=== PATIENT | female | born 1960 | race Caucasian/White ===

== ENCOUNTER 2025-02-01 15:09 | Outpatient (CLI) | payer MEDICARE ==
[~2025-02-01 15:09] MED LIST: ASCO-100 PO; BIOT25008 PO; BUSP15TA8 PO; CALC600T49 PO; CARV25TA2 PO; CHOL10002 PO; CLON-529 PO; CYAN25004 PO; DULO-31 PO; EST1T PO; GABA-1405 PO; LISI1TAB51 PO; OMEG500C PO; OMEP20CA15 PO; SPIR50TA5 PO; VENL-190 PO
--- NOTE | 2025-02-01 18:54 | RADIOLOGY REPORT ---
EXAM: MR MRI LOWER EXTREMITY LEFT INDICATION: PAIN IN LEFT FOOT TECHNIQUE: Multiplanar, multisequence imaging of the left forefoot COMPARISON: None FINDINGS: BONES: No MR evidence of an acute fracture, osseous contusion, or aggressive focal osseous lesion. MUSCLES: Diffuse edematous appearance which may be compatible with subacute on chronic denervation wi th [id number] fatty infiltration of the intrinsic musculature TENDONS: Intact. LIGAMENTS: Lisfranc ligamentous complex is intact JOINT SPACES: No joint effusion. NEUROVASCULAR: Normal. OTHER: Ganglion cyst extruded laterally and dorsally at the level of the midfoot measuring up to 1.6 cm. IMPRESSION: 1. Diffuse edematous appearance which may be compatible with subacute on chronic denervation with mil [id number] fatty infiltration of the intrinsic musculature. 2. Ganglion cyst extruded laterally and dorsally at the level of the midfoot measuring up to 1.6 cm.
--- NOTE | 2025-02-01 19:02 | RADIOLOGY REPORT ---
EXAM: MR MRI LOWER EXTREMITY LEFT INDICATION: PAIN IN LEFT FOOT TECHNIQUE: Multiplanar and multisequence MR imaging of the left ankle was performed in the absence of gadolinium contrast. COMPARISON: None FINDINGS: [MEDIAL ANKLE]: Intact posterior tibialis, flexor hallucis longus, and flexor digitorum tendons.. Int act deltoid ligament. Intact spring ligament complex. [LOW LATERAL ANKLE]: Thickening of the anterior talofibular ligament likely compatible with prior inj ury. Thickening of the calcaneofibular ligament compatible with prior injury. Thickening and irregula rity with susceptibility artifact which may be compatible with postoperative change of the peroneal b estrella tendon insertion at lateral cord of the plantar fascia. No loss of tightness to suggest high-g rade tear. Correlate for underlying fibrosis/scarring. [HIGH LATERAL ANKLE]: Intact anterior and posterior inferior tibiofibular ligaments. [ANTERIOR ANKLE]: Intact anterior tibialis, extensor digitorum longus, and extensor hallucis longus t endons. [POSTERIOR ANKLE]: No tibiotalar or subtalar joint effusion. Normal sinus Tarsi. Normal plantar fasci a. Achilles tendinosis with the loss of normal distal concavity. No retrocalcaneal bursitis. [MIDFOOT]: Ganglion cyst of the dorsal lateral aspect of the midfoot overlying the area of postoperat patt change of the 5th metatarsal measuring up to 1.6 cm. Surrounding edema. [BONES]: No acute fracture, osseous contusion, or aggressive osseous lesion. [MUSCLES]: Normal. [NEUROVASCULAR]: Normal tarsal tunnel [OTHER]: None IMPRESSION: 1. Ganglion cyst of the dorsal lateral aspect of the midfoot overlying the area of postoperative lanier ge of the 5th metatarsal measuring up to 1.6 cm. Surrounding edema. Correlate for symptomatic gangli on cysts. 2. Thickening of the anterior talofibular ligament likely compatible with prior injury. Thickening of the calcaneofibular ligament compatible with prior injury. 3. Thickening and irregularity with susceptibility artifact which may be compatible with postoperativ e change of the peroneal brevis tendon insertion at lateral cord of the plantar fascia. No loss of t ightness to suggest high-grade tear. Correlate for underlying fibrosis/scarring.
== END 2025-02-01 23:59 | disposition home or self-care (01) ==
LOC: MRI02 15:09
PROVIDERS: ATTEND Podiatrist Foot & Ankle Surgery
DX: M67.472 Ganglion, left ankle and foot (principal); M79.672 Pain in left foot; T84.84XA Pain due to internal orthopedic prosthetic devices, implants and grafts, initial encounter; M67.40 Ganglion, unspecified site; Y79.2 Prosthetic and other implants, materials and accessory orthopedic devices associated with adverse incidents; Y92.89 Other specified places as the place of occurrence of the external cause
CPT/HCPCS: 73718; 73721

== ENCOUNTER 2025-04-07 10:35 | Outpatient (CLI) | payer MEDICARE ==
[~2025-04-07 10:35] MED LIST changes: +BREX1TAB PO; +CHLO25TA10 PO; -DULO-31 PO; +FENO145T25 PO; -LISI1TAB51 PO; +LORA-269 PO; +MAGN400C PO; +POTA-205 PO; -SPIR50TA5 PO
[2025-04-07 11:43] LABS: CREATININE 0.65 MG/DL (0.40-0.90); TOTAL CARBON DIOXIDE 32.5 MMOL/L (24-32); eGFR > 90 ML/MIN
== END 2025-04-07 23:59 | disposition home or self-care (01) ==
LOC: LAB 10:35
PROVIDERS: ATTEND Surgery
DX: R92.8 Other abnormal and inconclusive findings on diagnostic imaging of breast (principal)
CPT/HCPCS: 36415; 80048

== ENCOUNTER → 2025-04-09 | Day surgery (SDC) | payer MEDICARE ==
[2025-04-01 11:39] LABS: MEAN PLATELET VOLUME 8.0 FL (7.4-10.4); PRE OP HEMATOCRIT 38.8 % (35.0-45.0); PRE OP HEMOGLOBIN 13.2 g/dL (12.0-16.0); PRE OP PLATELET COUNT 306 X10'3 (140-440); PRE OP WHITE BLOOD COUNT 12.2 10'3 (4.8-10.8); RED CELL DISTRIBUTION WIDTH 14.0 % (11.5-14.5)
--- NOTE | 2025-04-01 11:41 | ELECTROCARDIOGRAPH REPORT ---
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 DANYEL Hooker Measurements Intervals [place] Rate: 68 P: 41 WV: 229 QRS: -64 QRSD: 99 T: 51 QT: 424 QTc: 451 Interpretive Statements Sinus rhythm Prolonged W[place] interval LAD, consider left anterior fascicular block Electronically Signed On 04-02-2025 20:19:[address] DANYEL Hooker Please click the below link to view image of tracing.
[2025-04-01 11:50] LABS: CREATININE 0.67 MG/DL (0.40-0.90); PRE OP ALT 23 U/L (30-65); PRE OP ANION GAP 7 (8-16); PRE OP AST 19 U/L (10-37); PRE OP BILIRUB, TOTAL 0.5 MG/DL (0.0-1.0); PRE OP GLUCOSE 96 MG/DL (70-104); PRE OP SODIUM 139 MMOL/L (135-145); TOTAL CARBON DIOXIDE 32.9 MMOL/L (24-32); eGFR 88 ML/MIN
[2025-04-01 12:48] LABS: PRE OP POTASSIUM 2.9 MMOL/L (3.4-5.1)
[~2025-04-09] VITALS: Ht 165.1 cm; Wt 106.6 kg
[2025-04-09] VITALS (8 sets, daily range): BP systolic 124–149; BP diastolic 71–106; PULSE 64–71; RESP 11–16; TEMP 97.5; O2SAT 95–100
[~2025-04-09] MED LIST changes: +BUPIVAcaine 0.25% w/Epi /PF 30ml vial ONE; +BUPIVAcaine/PF 2.5mg/ml (0.25%) 10ml vial ONE; +DOCUMENT DATE & TIME OF BETA-BLOCKER PO ONE; +HYDROmorphone/PF 0.2 MG/ML SYRINGE IV PRN; +LIDOcaine 1% (10mg/ml)w/preservative inj. 20ml MDV ONE; +LIDOcaine 2% (20mg/ml) 5ml vial ONE; +acetaminophen 1,000mg/100ml IV 100 ML IV PRN; +dexamethasone sod phosphate 4mg/ml inj. ONE; +fentaNYL /PF 50mcg/ml 5ml ampule ONE; +hydrALAZINE 20mg/ml inj. IV PRN; +labetalol 20mg/4ml (5mg/ml) syringe IV PRN; +levoFLOXACIN-Levaquin 500mg/D5 100 ML IV ONE; +midazolam 1 mg/ML 2ml injection ONE; +morphine 4 MG/ML inj SYRINge IV PRN; +ondansetron/PF 4mg/2ml inj IV PRN; +ondansetron/PF 4mg/2ml inj ONE; +propofol inj 20 ML IV ONE; +ringers solution, lacted 1,000 ML IV SCH; +rocuronium 10mg/ml inj IV ONE
[2025-04-09] MEDS: ringers solution, lacted 1,000 ML IV SCH (07:36)
[2025-04-09] MEDS: aprepitant 40mg capsule PO ONE (07:37)
--- NOTE | 2025-04-09 09:35 | OPERATIVE REPORT ---
Operative Report Providers to ~ Date of Procedure: Apr 09, 2025 Pre-Operative Diagnosis: Abnormal image finding, right breast Post-Operative Diagnosis SAME as PRE-Op Procedure Performed Right tracking marker localization segmental mastectomy Surgeon: Cody Veloz MD Control Systems Drafting Officer NONE Anesthesiologist: Gordon Evangelista Type of Anesthesia: General Findings: Tracking marker identified 9 mm from the closest margin, which was anterior Complications None Prosthetics\Implants used: None Estimated Blood Loss: Less than 25 cc Specimen Removed: Left lower inner quadrant breast tissue Description of Procedure: The patient is identified in the supine position with her right arm extended. She was prepped and draped in the usual sterile fashion. Prior to surgery the patient has had a tracking marker placed under stereotactic guidance. Preoperative antibiotics have been administered within 1 hour of the patient's incision. SCDs have been applied. A curvilinear incision was made over the audible tracking marker signal. Flaps were raised towards and away from the nipple. The underlying breast tissue was then excised in a segmental fashion down to fascia. The specimen was oriented. Evaluation of the specimen demonstrates with a tracking marker was present within 9 mm of the anterior margin. Other margins were widely clear. The specimen was sent for pathologic study in formalin. The wound was thoroughly irrigated. Hemostasis was obtaine d. The incision was closed with interrupted 3-0 Vicryl pop-off sutures for the deep layers and a running 3-0 Stratafix suture for skin. The incision was dressed with Dermabond and a mesh dressing. The patient was taken to the [facility] in stable condition. Estimated blood loss less than 25 cc. Final sponge and needle count was correct x2 CODY VELOZ MD Apr 09, 2025 09:35
--- NOTE | 2025-04-13 18:47 | PATHOLOGY REPORT ---
[facility] [address] [place] [address] SURGICAL PATHOLOGY REPORT CaseNumber: [id number] Surgeon:Arianna Hunt CLINICAL INFORMATION CLINICAL INFORMATION: Not provided. 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 - ANTERIOR MARGIN POSITIVE AND SUPERIOR MARGIN < 1MM. - ESTROGEN RECEPTOR (ER): POSITIVE, >90%. - PROGESTERONE RECEPTOR (GA): POSITIVE, >90%. MICROSCOPIC DESCRIPTION MICROSCOPIC DESCRIPTION: 11 H&E slides are reviewed. Sections show ducts distended and filled by atyp ical epithelial cells with cribriform and papillary growth patterns. The tumor cells have moderately enlarged, hyperchromatic nuclei with occasional nucleoli, consistent with nuclear grade II (intermedi ate). There is spotty, patchy necrosis, but no comedo-type necrosis. Surrounding breast parenchyma sh ows fibrous stroma without invasive carcinoma. The DCIS does not form a discrete tumor but involves d ucts spanning almost the greatest dimension of the specimen estimated at 60 MM. Cauterized lesional cells focally are at inked anterior margin and are less than 1 mm from the superior margin. No lymph nodes are submitted or identified. There is no invasive disease. GROSS DESCRIPTION GROSS DESCRIPTION: Received in a container of formalin labeled with the patient's name, number, and R breast " is a 58 g oriented excision of fibrofatty breast tissue which measures 6 x 6.5 x 3 cm. The re are sutures identifying the anterior, inferior, and lateral aspects of the excision. The superior margin is marked blue, the inferior margin is marked green, the medial margin is marked orange, the lateral margin is marked yellow, the anterior margin is marked red, and the posterior margin is marke d black. Sectioning reveals fat and fibrous tissue with multiple cystic structures identified. A di screte mass lesion or comedo change is not present. No biopsy site marker is identified. Sections a re submitted as follows: A1-A2)Superior margin A3-A4) Inferior margin A5) Medial margin A6) Lateral margin A7) Anterior margin A8-A10) Posterior margin A11) Additional superior margin The time at which the specimen was removed was 0903. The time at which the specimen was placed in [facility] was 09. SYNOPTIC REPORT SYNOPTIC TEXT: DCIS OF THE BREAST: Resection Specimen Procedure: Excision (less than total mastectomy) Specimen Laterality: Right Tumor Tumor Site: Not specified Histologic Type: Ductal carcinoma in situ Size (Extent) of DCIS: 60 Millimeters (mm) Architectural Patterns: Cribriform; Papillary Nuclear Grade: Grade II (intermediate) Necrosis: negative for comedo-type necrosis Margins Margin Status: Anterior margin positive Regional Lymph Nodes Regional Lymph Node Status: Not applicable (no regional lymph nodes submitted or found) Pathologic Stage Classification (pTNM, AJCC 8th Edition) pT Category: pTis (DCIS) pN Category: pN not assigned (no nodes submitted or found) [facility] 2023 Q4 Release Electronically signed by: Matthias Pulido M.D. 04/13/2025 6:19:00 PM
== END | disposition home or self-care (01) ==
LOC: PAS 06:52
PROVIDERS: ATTEND Surgery
DX: R92.8 Other abnormal and inconclusive findings on diagnostic imaging of breast (principal); D05.11 Intraductal carcinoma in situ of right breast; R94.31 Abnormal electrocardiogram [ECG] [EKG]; I10 Essential (primary) hypertension; K21.9 Gastro-esophageal reflux disease without esophagitis; E66.9 Obesity, unspecified; F41.9 Anxiety disorder, unspecified; F32.A Depression, unspecified; G47.33 Obstructive sleep apnea (adult) (pediatric); I25.2 Old myocardial infarction; M19.90 Unspecified osteoarthritis, unspecified site; Z87.891 Personal history of nicotine dependence; Z79.899 Other long term (current) drug therapy; Z90.710 Acquired absence of both cervix and uterus; Z90.721 Acquired absence of ovaries, unilateral; Z98.891 History of uterine scar from previous surgery; Z98.890 Other specified postprocedural states; Z68.39 Body mass index [BMI] 39.0-39.9, adult; Z88.0 Allergy status to penicillin; Z88.1 Allergy status to other antibiotic agents
CPT/HCPCS: 19301; 36415; 80053; 82948; 85025; 93005; A4215; A4618; A6258; A6402; A7000; J0665; J1100; J1956; J2003; J2250; J2405; J2704; J3010; J3490; J7030; J7120; J8501; Z7506; Z7508; Z7512; Z7610; A6449